=== PATIENT | male | born 1985 | race Caucasian/White ===

== ENCOUNTER 2017-01-25 22:45 | Emergency (ER) | payer MEDICAID ==
[~2017-01-25] VITALS: Ht 180.3 cm; Wt 81.8 kg
[2017-01-25] MEDS ORDERED: OXYC30TA2 PO (22:58)
[2017-01-26 00:08] VITALS: BP 136/86
== END 2017-01-26 00:08 | disposition home or self-care (01) ==
LOC: EMS 22:46
DX: S60.819A Abrasion of unspecified wrist, initial encounter (principal); W86.8XXA Exposure to other electric current, initial encounter; Y93.89 Activity, other specified; Y92.89 Other specified places as the place of occurrence of the external cause; Y99.8 Other external cause status
CPT/HCPCS: 99283

== ENCOUNTER 2021-05-30 10:32 | Emergency (ER) | payer MEDICAID, OTHER ==
[~2021-05-30] VITALS: Ht 177.8 cm; Wt 100.0 kg
[~2021-05-30 10:32] MED LIST: OXYC30TA2 PO
[2021-05-30] MEDS ORDERED: KETOROLAC TROMETHAMINE 30 MG/ML VIAL IM ONE (13:00)
[2021-05-30 15:16] VITALS: BP 118/75
== END 2021-05-30 15:17 | disposition home or self-care (01) ==
LOC: EMS 10:47
DX: M25.562 Pain in left knee (principal)
CPT/HCPCS: 73562; 96372; 99283; J1885